=== PATIENT | female | born 1980 | race Caucasian/White ===

== ENCOUNTER 2023-10-20 12:02 | Emergency (ER) | payer OTHER ==
[2023-10-20 12:07] VITALS: BP 111/52; PULSE 79; RESP 18; TEMP 98.4; BMI 31.6
[2023-10-20 14:03] LABS: BASO % 1.4 % (0-2.0); EOS % 4.8 % (0-4.5); HEMATOCRIT 24.7 % (32.4-45.2); LYMPH % 34.6 % (8-40); MCHC 28.5 g/dl (32.0-36.0); MEAN CELL VOLUME 61.3 fl (80-96); MEAN PLT VOLUME 8.4 fl (7.5-11.1); MONO % 7.8 % (3.8-10.2); NEUT % 51.4 % (42.8-82.8); PLATELET COUNT 282 10^3/uL (134-434); RBC 4.02 M/mm3 (3.60-5.2); RDW 19.2 % (11.6-15.6); WHITE BLOOD COUNT 3.8 K/mm3 (4.0-10.0)
[2023-10-20 14:04] LABS: MCH 17.5 pg (25.7-33.7)
[2023-10-20 14:30] LABS: CALCIUM 8.6 mg/dL (8.5-10.1)
[2023-10-20 14:31] LABS: ALBUMIN 3.7 g/dl (3.4-5.0); BLOOD UREA NITROGEN 12.2 mg/dL (7-18)
[2023-10-20 14:34] LABS: CREATININE 0.6 mg/dL (0.55-1.3); IRON SERUM 8 ug/dL (50-175)
[2023-10-20 14:35] LABS: TOTAL IRON BINDING CAPACITY 442 ug/dL (250-450)
[2023-10-20 14:36] LABS: BILIRUBIN,TOTAL 0.4 mg/dL (0.2-1); TOT PROT 7.2 g/dl (6.4-8.2)
[2023-10-20 14:43] LABS: ANISOCYTOSIS 1+; MACROCYTOSIS 0
== END 2023-10-20 20:30 | disposition home or self-care (01) ==
LOC: JER 12:02
DX: E61.1 Iron deficiency (principal); R42 Dizziness and giddiness
CPT/HCPCS: 36415; 74177-TC; 80053; 82728; 83540; 83550; 84703; 85025; 86850; 86900; 86901; 99285-25; Q9967

== ENCOUNTER 2023-10-27 04:49 | Day surgery (SDC) | payer OTHER ==
[2023-10-22 10:17] VITALS: BMI 32.0
[2023-10-27 13:01] VITALS: TEMP 98.9
[2023-10-27 13:43] VITALS: BP 109/61; PULSE 64; RESP 20
== END 2023-10-27 14:03 | disposition home or self-care (01) ==
LOC: JASU-ENDO 04:49
PROVIDERS: ATTEND Internal Medicine Gastroenterology
PROC: 0DB98ZX Excision of Duodenum, Via Natural or Artificial Opening Endoscopic, Diagnostic (ICD-10-PCS; 2023-10-27)
PROC: 0DB78ZX Excision of Stomach, Pylorus, Via Natural or Artificial Opening Endoscopic, Diagnostic (ICD-10-PCS; 2023-10-27)
PROC: 0DJD8ZZ Inspection of Lower Intestinal Tract, Via Natural or Artificial Opening Endoscopic (ICD-10-PCS; principal; 2023-10-27 11:00)
DX: K29.50 Unspecified chronic gastritis without bleeding (principal); K64.8 Other hemorrhoids; D50.9 Iron deficiency anemia, unspecified; Z98.84 Bariatric surgery status
CPT/HCPCS: 81025; 88305-TC; 88342-TC

== ENCOUNTER 2023-11-15 11:38 | Day surgery (SDC) | payer OTHER ==
[2023-11-15] MEDS: IRON SUCROSE COMPLEX 200 MG in SODIUM CHLORIDE 100 ML IVPB SCH (12:15)
[2023-11-15 16:33] VITALS: BP 112/72; PULSE 72; RESP 18; TEMP 98.1
== END 2023-11-15 13:15 | disposition home or self-care (01) ==
LOC: FM/S 11:38 → FINFUSION 11:38
PROVIDERS: ATTEND Internal Medicine
PROC: 3E033GC Introduction of Other Therapeutic Substance into Peripheral Vein, Percutaneous Approach (ICD-10-PCS; principal; 2023-11-15)
DX: D50.9 Iron deficiency anemia, unspecified (principal)
CPT/HCPCS: 96365

== ENCOUNTER 2024-07-03 10:21 | Day surgery (SDC) | payer OTHER ==
[2024-07-03] MEDS: IRON SUCROSE INJECTION 200 MG in SODIUM CHLORIDE 100 ML IVPB ONE (10:49)
[2024-07-03 10:50] VITALS: BP 123/86; PULSE 78; RESP 18; TEMP 98.1
== END 2024-07-03 12:05 | disposition home or self-care (01) ==
LOC: FINFUSION 10:21 → FM/S 10:21 → FINFUSION 12:05
PROVIDERS: ATTEND Internal Medicine
PROC: 3E033GC Introduction of Other Therapeutic Substance into Peripheral Vein, Percutaneous Approach (ICD-10-PCS; principal; 2024-07-03)
DX: D50.9 Iron deficiency anemia, unspecified (principal)
CPT/HCPCS: 96365; J1756

== ENCOUNTER 2024-07-10 09:30 | Day surgery (SDC) | payer OTHER ==
[2024-07-10] MEDS: IRON SUCROSE INJECTION 200 MG in SODIUM CHLORIDE 100 ML IVPB ONE (10:36)
[2024-07-10 11:27] VITALS: BP 118/70; PULSE 70; RESP 16; TEMP 98.1
== END 2024-07-10 11:28 | disposition home or self-care (01) ==
LOC: FINFUSION 09:30 → FM/S 09:37 → FINFUSION 11:28
PROVIDERS: ATTEND Internal Medicine
PROC: 3E033GC Introduction of Other Therapeutic Substance into Peripheral Vein, Percutaneous Approach (ICD-10-PCS; principal; 2024-07-10)
DX: D50.9 Iron deficiency anemia, unspecified (principal)
CPT/HCPCS: 96365; J1756